=== PATIENT | male | born 1955 | race African-American/Black ===

== ENCOUNTER 2016-07-09 09:11 | Emergency (ER) | payer MEDICAID ==
[~2016-07-09] VITALS: Ht 180.3 cm; Wt 80.0 kg
[2016-07-09 09:59] VITALS: BP 159/92
[2016-07-09] MEDS ORDERED: KETOROLAC 60MG/2ML VIAL IM ONE (11:45)
== END 2016-07-09 13:29 | disposition home or self-care (01) ==
LOC: ER 10:15
DX: M54.31 Sciatica, right side (principal); M54.9 Dorsalgia, unspecified; I10 Essential (primary) hypertension; Z98.890 Other specified postprocedural states
CPT/HCPCS: 96372; 99283; J1885

== ENCOUNTER 2019-07-19 13:57 | Emergency (ER) | payer MEDICAID ==
[~2019-07-19] VITALS: Ht 180.3 cm; Wt 78.0 kg
[2019-07-19 14:02] VITALS: BP 162/84
[2019-07-19] MEDS ORDERED: BENA1TAB19 MT (14:08)
[2019-07-19] MEDS ORDERED: AMLO5TAB88 MT (14:09)
[2019-07-19] MEDS ORDERED: HYDR25TA MT (14:10)
== END 2019-07-19 14:42 | disposition home or self-care (01) ==
LOC: ER 13:57
DX: I10 Essential (primary) hypertension (principal); Z76.0 Encounter for issue of repeat prescription
CPT/HCPCS: 99281

== ENCOUNTER 2025-03-07 07:54 | Emergency (ER) | payer MEDICAID ==
[~2025-03-07] VITALS: Ht 177.8 cm; Wt 73.0 kg
[~2025-03-07 07:54] MED LIST: AMLO5TAB88 MT; BENA1TAB19 MT; HYDR25TA MT
[2025-03-07 07:57] VITALS: O2SAT 98
[2025-03-07 08:28] LABS: BASOPHILS % 0.7 % (0.0-2.0); EOSINOPHILS % 1.1 % (0.0-5.0); HEMATOCRIT. 43.7 % (42.0-52.0); HEMOGLOBIN. 14.4 g/dL (14.0-18.0); LYMPHOCYTES % 19.5 % (20.0-50.0); MEAN PLATELET VOLUME 9.1 fl (7.4-10.4); MONOCYTES % 9.3 % (2.0-8.0); NEUTROPHILS % 69.4 % (40.0-76.0); PLATELET 173 x1000/uL (130-400); RED BLOOD CELL COUNT 4.59 mill/uL (4.7-6.1); RED CELL DISTRIBUTION WIDTH 16.7 % (11.6-14.6)
[2025-03-07] MEDS: KETOROLAC 15MG/ML VIAL IV ONE (08:34)
[2025-03-07] MEDS: HYDRALAZINE 20MG/ML VIAL IV ONE (08:34)
[2025-03-07] MEDS: SODIUM CHLORIDE 0.9% 1,000 ML IV ONE (08:35)
[2025-03-07] MEDS: METOCLOPRAMIDE HCL 10MG/2ML VIAL IV ONE (08:35)
[2025-03-07 08:41] LABS: CREATININE 1.1 mg/dL (0.6-1.3); UREA NITROGEN BLOOD 10 mg/dL (9-23)
[2025-03-07 08:42] LABS: TROPONIN I HIGH SENSITIVITY 7 ng/L (3.0-53)
[2025-03-07 08:59] VITALS: TEMP 36.8
[2025-03-07] MEDS ORDERED: TOPUD PO (09:31)
[2025-03-07 10:20] VITALS: BP 131/75; PULSE 88; RESP 28; O2SAT 95
== END 2025-03-07 10:40 | disposition home or self-care (01) ==
LOC: ER 08:07 → CANBEDREQ 09:14 → ER 10:40
DX: R51.9 Headache, unspecified (principal); I16.0 Hypertensive urgency; E78.00 Pure hypercholesterolemia, unspecified; I10 Essential (primary) hypertension; Z79.899 Other long term (current) drug therapy
CPT/HCPCS: 99284; 96374; 96375; 80048; 85025; 84484; 36415; 93005; J1885; J0360; J2765; J7030